=== PATIENT | female | born 1935 | race Caucasian/White ===

== ENCOUNTER 2017-12-14 05:13 | Inpatient (IN) | payer MEDICARE ==
[2017-12-14] MEDS ORDERED: PATIENT EDUCATION 1 MISC PRN (05:40)
[2017-12-14] MEDS: SCOPOLAMINE 1.5MG PATCH TD SCH (05:48)
[2017-12-14] MEDS ORDERED: LACTATED RINGERS 1,000 ML IV ONE (06:00)
[2017-12-14] MEDS ORDERED: LACTATED RINGERS 1,000 ML IV SCH (07:00)
[2017-12-14] MEDS ORDERED: SODIUM CHLORIDE 20 ML 20 ML ONE (07:03)
[2017-12-14] MEDS ORDERED: TRANEXAMIC ACID 100 MG/ML SOL ONE (07:03)
[2017-12-14] MEDS ORDERED: ONDANSETRON HCL 4 MG/2 ML SOL ONE (07:13)
[2017-12-14] MEDS ORDERED: DEXAMETHASONE 20 MG/5 ML (4 MG/ML SOL) ONE (07:13)
[2017-12-14] MEDS ORDERED: PROPOFOL 500 MG/50 ML EMU IV ONE ×2 (07:13→07:39)
[2017-12-14] MEDS ORDERED: METOCLOPRAMIDE HYDROCHLORIDE 5 MG/ML SOL ONE (07:13)
[2017-12-14] MEDS ORDERED: CEFAZOLIN SODIUM 1 GM PDS ONE ×3 (07:13→17:01)
[2017-12-14] MEDS ORDERED: MORPHINE SULFATE 0.5 MG/ML SOL ONE (07:14)
[2017-12-14] MEDS ORDERED: MIDAZOLAM 2 MG/2 ML SOL ONE (07:14)
[2017-12-14] MEDS: BUPIVACAINE HCL 0.25% MPF 30 ML SOL INFIL ONE ×2 (09:24→09:49)
[2017-12-14] MEDS: BUPIVACAINE LIPOSOME 20 ML SUS ONE ×2 (09:24→09:49)
[2017-12-14] MEDS ORDERED: FLEET ENEMA PR PRN (09:50)
[2017-12-14] MEDS ORDERED: ONDANSETRON HCL 4 MG/2 ML SOL IV PRN (09:50)
[2017-12-14] MEDS ORDERED: MAGNESIUM HYDROXIDE 30 ML SUS PO PRN (09:50)
[2017-12-14] MEDS ORDERED: SODIUM CHLORIDE 0.9% 500 ML 500 ML IV PRN (09:50)
[2017-12-14] MEDS ORDERED: ALUMINUM/MAGNESIUM 30 ML SUS PO PRN (09:50)
[2017-12-14] MEDS ORDERED: DIAZEPAM 5 MG TAB PO PRN (09:50)
[2017-12-14] MEDS ORDERED: BISACODYL 10 MG SUP PR PRN (09:50)
[2017-12-14] MEDS ORDERED: ONDANSETRON 4 MG ODT BU PRN (09:50)
[2017-12-14] MEDS: DEXTROSE/SALINE 0.45/KCL 20MEQ 1,000 ML/1,000 ML SOL IV SCH ×2 (11:19→21:01)
[2017-12-14] MEDS: SODIUM CHLORIDE 0.9% FLUSH 10 ML SOL IV SCH ×2 (11:56→18:26)
[2017-12-14] MEDS: LEVOTHYROXINE SODIUM 112 MCG TAB PO SCH (16:07)
[2017-12-14] MEDS ORDERED: CEFAZOLIN (PREMIX) 1 GM 1 GM/50 ML SOL IV SCH (16:45)
[2017-12-14] MEDS ORDERED: SODIUM CHLORIDE 0.9% 100 ML 100 ML IV ONE (17:01)
[2017-12-14] MEDS: CEFAZOLIN SODIUM 1 GM PDS 2 GM in SODIUM CHLORIDE 0.9% 100 ML 100 ML IV SCH (17:08)
[2017-12-14] MEDS: APAP/OXYCODONE 325/5 TAB PO PRN (17:09)
[2017-12-14] MEDS: ONDANSETRON HCL 4 MG/2 ML SOL IV PRN (19:17)
[2017-12-14] MEDS: SENNOSIDES A AND B 8.6 MG TAB PO SCH (21:00)
[2017-12-14] MEDS: GABAPENTIN 300 MG CAP PO SCH (21:00)
[2017-12-14] MEDS: METOPROLOL TARTRATE 25 MG TAB PO SCH (21:00)
[2017-12-14] MEDS: ATORVASTATIN 10 MG TAB PO SCH (21:01)
[2017-12-14] MEDS: BRINZOLAMIDE 1% EACHEYE SCH (21:01)
[2017-12-14] MEDS: BIMATOPROST 2.5 ML SOL EACHEYE SCH (21:01)
[2017-12-14] MEDS: ZOLPIDEM TARTRATE 5 MG TAB PO PRN (21:14)
[2017-12-15] MEDS ORDERED: SODIUM CHLORIDE 0.9% 100 ML 100 ML IV ONE (00:44)
[2017-12-15] MEDS ORDERED: CEFAZOLIN SODIUM 1 GM PDS ONE (00:44)
[2017-12-15] MEDS: CEFAZOLIN SODIUM 1 GM PDS 2 GM in SODIUM CHLORIDE 0.9% 100 ML 100 ML IV SCH (00:51)
[2017-12-15] MEDS: APAP/OXYCODONE 325/5 TAB PO PRN ×4 (00:58→12:40)
[2017-12-15] MEDS: ONDANSETRON HCL 4 MG/2 ML SOL IV PRN ×2 (01:12→06:05)
[2017-12-15] MEDS: SODIUM CHLORIDE 0.9% FLUSH 10 ML SOL IV SCH ×4 (01:13→18:56)
[2017-12-15] MEDS: LEVOTHYROXINE SODIUM 112 MCG TAB PO SCH (06:21)
[2017-12-15 07:16] LABS: HEMOGLOBIN 10.3 gm/dl (12.0-15.5); MEAN CORPUSCULAR HEMOGLOBIN 33.1 pg (27.0-32.0); MEAN CORPUSCULAR HGB CONC 33.6 gm/dl (32.0-36.0)
[2017-12-15 07:17] LABS: CALCIUM 7.5 mg/dl (8.5-10.1); CARBON DIOXIDE 22.4 mEq/L (21-32); CREATININE 1.08 mg/dl (0.60-1.00)
[2017-12-15] MEDS: GABAPENTIN 300 MG CAP PO SCH ×2 (08:39→21:06)
[2017-12-15] MEDS: RIVAROXABAN 10 MG TAB PO SCH (08:39)
[2017-12-15] MEDS: METOPROLOL TARTRATE 25 MG TAB PO SCH ×2 (08:39→21:05)
[2017-12-15] MEDS: BRINZOLAMIDE 1% EACHEYE SCH ×2 (08:40→21:06)
[2017-12-15] MEDS: ALLOPURINOL 100 MG TAB PO SCH (08:40)
[2017-12-15] MEDS: HYDROCHLOROTHIAZIDE 25 MG TAB PO SCH (08:43)
[2017-12-15] MEDS ORDERED: LISINOPRIL 20 MG TAB PO SCH (09:00)
[2017-12-15] MEDS: DEXTROSE/SALINE 0.45/KCL 20MEQ 1,000 ML/1,000 ML SOL IV SCH (09:13)
[2017-12-15] MEDS: LISINOPRIL 20 MG TAB PO SCH (09:25)
[2017-12-15] MEDS: ACETAMINOPHEN 325 MG PO PRN ×2 (16:26→21:03)
[2017-12-15] MEDS: BIMATOPROST 2.5 ML SOL EACHEYE SCH (21:00)
[2017-12-15] MEDS: ATORVASTATIN 10 MG TAB PO SCH (21:05)
[2017-12-15] MEDS: SENNOSIDES A AND B 8.6 MG TAB PO SCH (21:06)
[2017-12-15] MEDS: ZOLPIDEM TARTRATE 5 MG TAB PO PRN (21:30)
[2017-12-16] MEDS: ACETAMINOPHEN 325 MG PO PRN (01:19)
[2017-12-16] MEDS: SODIUM CHLORIDE 0.9% FLUSH 10 ML SOL IV SCH ×3 (03:18→18:34)
[2017-12-16] MEDS: LEVOTHYROXINE SODIUM 112 MCG TAB PO SCH (06:48)
[2017-12-16 07:19] LABS: MEAN CORPUSCULAR HEMOGLOBIN 32.7 pg (27.0-32.0); MEAN CORPUSCULAR HGB CONC 33.2 gm/dl (32.0-36.0)
[2017-12-16] MEDS: APAP/OXYCODONE 325/5 TAB PO PRN ×4 (08:20→20:31)
[2017-12-16] MEDS: BRINZOLAMIDE 1% EACHEYE SCH ×2 (08:45→20:25)
[2017-12-16] MEDS: GABAPENTIN 300 MG CAP PO SCH ×2 (08:45→20:12)
[2017-12-16] MEDS: RIVAROXABAN 10 MG TAB PO SCH (08:45)
[2017-12-16] MEDS: LISINOPRIL 20 MG TAB PO SCH (08:45)
[2017-12-16] MEDS: ALLOPURINOL 100 MG TAB PO SCH (08:46)
[2017-12-16] MEDS: HYDROCHLOROTHIAZIDE 25 MG TAB PO SCH (08:46)
[2017-12-16] MEDS: METOPROLOL TARTRATE 25 MG TAB PO SCH ×2 (08:46→20:12)
[2017-12-16 15:57] VITALS: RESP 16
[2017-12-16] MEDS: SENNOSIDES A AND B 8.6 MG TAB PO SCH (20:12)
[2017-12-16] MEDS: ATORVASTATIN 10 MG TAB PO SCH (20:13)
[2017-12-16] MEDS: BIMATOPROST 2.5 ML SOL EACHEYE SCH (20:20)
[2017-12-17] MEDS: APAP/OXYCODONE 325/5 TAB PO PRN ×2 (01:26→06:47)
[2017-12-17] MEDS: SODIUM CHLORIDE 0.9% FLUSH 10 ML SOL IV SCH (05:37)
[2017-12-17] MEDS: SCOPOLAMINE 1.5MG PATCH TD SCH (05:38)
[2017-12-17] MEDS: LEVOTHYROXINE SODIUM 112 MCG TAB PO SCH (06:47)
[2017-12-17 06:54] VITALS: BP 148/74; PULSE 59; O2SAT 97
[2017-12-17 07:20] LABS: HEMOGLOBIN 11.5 gm/dl (12.0-15.5); MEAN CORPUSCULAR HEMOGLOBIN 32.9 pg (27.0-32.0); MEAN CORPUSCULAR HGB CONC 33.2 gm/dl (32.0-36.0)
[2017-12-17] MEDS: BRINZOLAMIDE 1% EACHEYE SCH (08:58)
[2017-12-17] MEDS: ALLOPURINOL 100 MG TAB PO SCH (08:59)
[2017-12-17] MEDS: RIVAROXABAN 10 MG TAB PO SCH (08:59)
[2017-12-17] MEDS: HYDROCHLOROTHIAZIDE 25 MG TAB PO SCH (08:59)
[2017-12-17] MEDS: GABAPENTIN 300 MG CAP PO SCH (08:59)
[2017-12-17] MEDS: LISINOPRIL 20 MG TAB PO SCH (09:00)
[2017-12-17] MEDS: METOPROLOL TARTRATE 25 MG TAB PO SCH (09:00)
[2017-12-17 09:18] VITALS: TEMP 98.4
== END 2017-12-17 10:25 | DRG 470 ==
LOC: ACUTE CARE 05:13
PROVIDERS: ADMIT Orthopaedic Surgery; ATTEND Orthopaedic Surgery
PROC: F01L5YZ Range of Motion and Joint Integrity Assessment of Musculoskeletal System - Lower Back / Lower Extremity using Other Equipment (ICD-10-PCS; 2017-12-14)
PROC: 0SRC0J9 Replacement of Right Knee Joint with Synthetic Substitute, Cemented, Open Approach (ICD-10-PCS; principal; 2017-12-14 08:00)
PROC: F02Z0ZZ Bathing/Showering Assessment (ICD-10-PCS; 2017-12-15)
PROC: F02Z0ZZ Bathing/Showering Assessment (ICD-10-PCS; 2017-12-15)
DX: M17.11 Unilateral primary osteoarthritis, right knee (principal); I10 Essential (primary) hypertension; E78.5 Hyperlipidemia, unspecified; Z96.651 Presence of right artificial knee joint; N39.41 Urge incontinence; E03.9 Hypothyroidism, unspecified
CPT/HCPCS: 36415; 73560; 80048; 85027; 85049; 94150; 99070; J0690; J1100; J2250; J2274; J2405; J2765; A6232; A9270-GY; J2704; J3490

== ENCOUNTER 2018-02-08 10:39 | Outpatient (CLI) | payer MEDICARE ==
[2017-12-17 06:54] VITALS: O2SAT 97
== END 2018-02-08 10:40 | disposition home or self-care (01) | DRG 561 ==
LOC: CONVCARE 10:39
PROVIDERS: ATTEND Orthopaedic Surgery
DX: Z47.1 Aftercare following joint replacement surgery (principal); Z96.651 Presence of right artificial knee joint
CPT/HCPCS: 73560